=== PATIENT | male | born 1960 | race Hispanic/Latino ===

== ENCOUNTER 2017-09-25 12:22 | Emergency (ER) | payer MEDICARE ==
[2017-09-25 13:39] LABS: Bilirubin,Urine NEG (Negative); Blood,Urine LG (Negative); Color,Urine Red (Yellow); Mucus,Urine FEW /HPF; Urobilinogen,Urine < 2.0 mg/dL (<2.0)
[2017-09-25 13:41] LABS: RBC,Urine > 182.0 /HPF (0.0-6.0)
--- NOTE | 2017-09-25 15:35 | Emergency Department Report ---
ED Male HPI - General Chief complaint: Urogenital-Male Stated complaint: BLOOD IN URINE Time Seen by Provider: 09/25/17 15:13 Source: patient Mode of arrival: Ambulatory Limitations: No Limitations - History of Present Illness Initial comments: Patient is a 57-year-old male who is coming in because of blood in his urine. Patient states he has some very mild dysuria but has been seeing some blood-tinged urine with some white particles since Sunday. Patient's denies any fevers chills nausea vomiting or diarrhea. Patient denies any abdominal pain chest pain at this time. - Related Data Previous Rx's Medication Instructions Recorded Last Taken Type Ciprofloxacin HCl [Cipro] 500 mg PO BID #20 tablet 09/25/17 Unknown Rx Tamsulosin HCl [Flomax] 0.4 mg PO QHS #10 cap.er.24h 09/25/17 Unknown Rx Allergies Allergy/AdvReac Type Severity Reaction Status Date / Time No Known Allergies Allergy Unverified 09/25/17 12:33 ED Review of Systems ROS: Stated complaint: BLOOD IN URINE Other details as noted in HPI Comment: All other systems reviewed and negative ED Past Medical Hx - Past Medical History Hx Diabetes: Yes - Social History Smoking Status: Never Smoker Substance Use Type: None - Medications Home Medications: Home Medications Medication Instructions Recorded Confirmed Last Taken Type Ciprofloxacin HCl [Cipro] 500 mg PO BID #20 tablet 09/25/17 Unknown Rx Tamsulosin HCl [Flomax] 0.4 mg PO QHS #10 cap.er.24h 09/25/17 Unknown Rx ED Physical Exam - General Limitations: No Limitations General appearance: alert, in no apparent distress - Head Head exam: Present: atraumatic, normocephalic - Eye Eye exam: Present: normal appearance - ENT ENT exam: Present: mucous membranes moist - Neck Neck exam: Present: normal inspection - Respiratory Respiratory exam: Present: normal lung sounds bilaterally. Absent: respiratory distress, wheezes, rales, rhonchi - Cardiovascular Cardiovascular Exam: Present: regular rate, normal rhythm. Absent: systolic murmur, diastolic murmur, rubs, gallop - GI/Abdominal GI/Abdominal exam: Present: soft, normal bowel sounds. Absent: distended, tenderness, guarding - Rectal Rectal exam: Present: deferred - Extremities Exam Extremities exam: Present: normal inspection - Back Exam Back exam: Present: normal inspection - Neurological Exam Neurological exam: Present: alert, oriented X3 - Psychiatric Psychiatric exam: Present: normal affect, normal mood - Skin Skin exam: Present: warm, dry, intact, normal color. Absent: rash ED Course Vital Signs 09/25/17 12:33 Temperature 98.2 F Pulse Rate 94 H Respiratory 20 Rate Blood Pressure 181/90 O2 Sat by Pulse 97 Oximetry ED Medical Decision Making - Lab Data Lab Results 09/25/17 Range/Units 12:49 Urine Color Red (Yellow) Urine Turbidity Clear (Clear) Urine pH 5.0 (5.0-7.0) Ur Specific [place] 1.017 (1.003-1.030) Urine Protein 30 mg/dl (Negative) mg/dL Urine Glucose (UA) Neg (Negative) mg/dL Urine Ketones Neg (Negative) mg/dL Urine Blood Lg (Negative) Urine Nitrite Neg (Negative) Urine Bilirubin Neg (Negative) Urine Urobilinogen < 2.0 (<2.0) mg/dL Ur Leukocyte Esterase Neg (Negative) Urine WBC (Auto) 60.0 H (0.0-6.0) /HPF Urine RBC (Auto) > 182.0 (0.0-6.0) /HPF U Epithel Cells (Auto) 1.0 (0-13.0) /HPF Urine Mucus Few /HPF Urine Yeast (Budding) 3+ /HPF - Medical Decision Making The patient appears very stable for at home treatment. Patient be started on Cipro and will be discharged. Critical care attestation.: If time is entered above; I have spent that time in minutes in the direct care of this critically ill patient, excluding procedure time. ED Disposition Clinical Impression: UTI (urinary tract infection) Qualifiers: Urinary tract infection type: acute cystitis Hematuria presence: with hematuria Qualified Code(s): N30.01 - Acute cystitis with hematuria Disposition: TO HOME OR SELFCARE Is pt being admited?: No Does the pt Need Aspirin: No Condition: Stable Instructions: Urinary Tract Infection in Men (ED) Prescriptions: Tamsulosin HCl [Flomax] 0.4 mg PO QHS #10 cap.er.24h Ciprofloxacin HCl [Cipro] 500 mg PO BID #20 tablet Referrals: HERI BOWEN MD [Primary Care Provider] - 3-5 Days
[2017-09-25 15:48] VITALS: BP 174/84
== END 2017-09-25 15:47 | disposition home or self-care (01) ==
LOC: ED 12:22
DX: N39.0 Urinary tract infection, site not specified (principal); E11.9 Type 2 diabetes mellitus without complications
CPT/HCPCS: 81001; 99283

== ENCOUNTER 2017-10-24 12:01 | Outpatient (CLI) | payer MEDICARE ==
[2017-10-24 13:50] LABS: Blood Urea Nitrogen 24 mg/dL (9-20)
--- NOTE | 2017-10-24 20:07 | Cat Scan Report ---
FINAL REPORT EXAM: CT A/P w Contrast CLINICAL INDICATIONS: Hematuria FINDINGS: Unenhanced CT was performed from the level of the right mid-kidney to the pelvis. Subsequently, contrast-enhanced CT was performed from the midportion of the right kidney to the pelvis following the administration of intravenous iodinated contrast. Delayed phase images through the lower chest were acquired. Excretory-phase images through the entire abdomen and pelvis were acquired. Unfortunately no precontrast or early-phase imaging was performed of the upper abdomen. There is cardiomegaly and coronary artery calcification. The lung bases appear clear. Abdomen: There is a mass of the right upper renal pole and lateral aspect of the right kidney, approximately 13.4 x 12.5 cm consistent with renal cell carcinoma. There are multiple collateral vessels around the right kidney which are likely feeding the tumor. The right kidney continues to function and excretion from the right kidney is present. There is possible tumor thrombus within the proximal portion of the right renal vein, questioned on delayed-phase expiratory images 23-24. No thrombus is seen in the inferior vena cava. No pathologically enlarged retroperitoneal lymph node is seen. The left kidney appears unremarkable on the delayed-phase images. Other images of the left kidney were not acquired. There are gallstones. No evidence of cholecystitis is seen. No suspect focal hepatic lesion is seen. The spleen is normal in size. No adrenal mass is seen. No focal pancreatic lesion is seen. The abdominal aorta is normal in size. Pelvis: There is a normal appendix. There is no evidence of diverticulitis. The prostate and urinary bladder are within normal limits. IMPRESSION: ABDOMEN: MASS WITHIN RIGHT KIDNEY, CONSISTENT WITH RENAL CELL CARCINOMA. THERE IS POSSIBLE TUMOR THROMBUS WITHIN THE PROXIMAL ASPECT OF THE RIGHT RENAL VEIN. NO THROMBUS IS SEEN IN THE INFERIOR VENA CAVA PELVIS: NORMAL APPENDIX
== END 2017-10-24 12:02 | disposition home or self-care (01) ==
LOC: CT 12:01
PROVIDERS: ATTEND Internal Medicine
DX: N28.89 Other specified disorders of kidney and ureter (principal)
CPT/HCPCS: 36415; 74177; 82565; 84520; Q9967

== ENCOUNTER 2018-07-08 10:50 | Outpatient (CLI) | payer MEDICARE, SELFPAY | END 2018-07-08 10:51 | disposition home or self-care (01) | LOC: LAB 10:50 | PROVIDERS: ATTEND Internal Medicine | DX: E11.9 Type 2 diabetes mellitus without complications (principal); E66.9 Obesity, unspecified; I10 Essential (primary) hypertension | CPT/HCPCS: 36415; 83036 ==

== ENCOUNTER 2018-09-11 09:15 | Outpatient (CLI) | payer MEDICARE ==
--- NOTE | 2018-09-11 12:17 | Cat Scan Report ---
CT scan of chest and abdomen without IV contrast: History: Malignant neoplasm of unspecified kidney. Findings: No endobronchial or mediastinal mass. No mediastinal hilar or axillary adenopathy. No pleural pericardial effusion. There is identified in the esophagus which may be a nonspecific or related to distal esophageal obstruction. Normal lung parenchyma. No discrete nodularity or consolidation Multiple calculi in the gallbladder. Normal liver spleen pancreas. Normal right and left adrenal gland. Patient status post right nephrectomy. No mass in the region of the renal fossae. No evidence of adenopathy. Normal left kidney. Normal bladder. No free intraperitoneal fluid or air. Stool in colon. No bowel distention. Impression: Air in the esophagus as detailed above. No acute lung changes are mediastinal adenopathy. Multiple calculi in the gallbladder. Patient status post right nephrectomy. No recurrence. No evidence of adenopathy.
--- NOTE | 2018-09-11 13:32 | Nuclear Medicine Report ---
NUCLEAR MEDICINE WHOLE-BODY BONE SCAN: 09/11/18 09:27:00 CLINICAL: Malignant neoplasm kidney COMPARISON: 02/01/18 TECHNIQUE: 27.5 millicuries technetium 99m MDP was injected intravenously and whole body scans were obtained at 3 hours. FINDINGS: Relatively symmetric benign uptake in the shoulders, clavicles, sternum and thoracic spine which is unchanged compared to the previous exam. No suspicious uptake. Normal distribution of uptake in the soft tissues. Absent right renal uptake. IMPRESSION: Negative study with no suspicion of metastasis.
== END 2018-09-11 09:16 | disposition home or self-care (01) ==
LOC: NM 09:15
PROVIDERS: ATTEND Internal Medicine Hematology & Oncology
DX: K80.20 Calculus of gallbladder without cholecystitis without obstruction (principal); R59.0 Localized enlarged lymph nodes; C64.9 Malignant neoplasm of unspecified kidney, except renal pelvis; E11.9 Type 2 diabetes mellitus without complications; I10 Essential (primary) hypertension; E66.9 Obesity, unspecified
CPT/HCPCS: 71250; 74176; 78306; A9503

== ENCOUNTER 2018-11-05 10:43 | Outpatient (CLI) | payer MEDICARE ==
[2018-11-08 15:02] LABS: Vitamin D, 25-OH, D2 <4 ng/mL
== END 2018-11-05 10:44 | disposition home or self-care (01) ==
LOC: LAB 10:43
PROVIDERS: ATTEND Internal Medicine
DX: E11.9 Type 2 diabetes mellitus without complications (principal); E66.9 Obesity, unspecified; I10 Essential (primary) hypertension; Z13.21 Encounter for screening for nutritional disorder
CPT/HCPCS: 36415; 82306; 82607; 83036

== ENCOUNTER 2019-12-25 13:29 | Outpatient (CLI) | payer MEDICARE ==
--- NOTE | 2019-12-25 15:10 | Cat Scan Report ---
CT CHEST WITHOUT CONTRAST INDICATION / CLINICAL INFORMATION: RENAL CELL CANCER. TECHNIQUE: Axial CT images were obtained through the chest without contrast. Sagittal and coronal reformatted im ages. All CT scans at this location are performed using CT dose reduction for ALARA by means of autom ated exposure control. COMPARISON: 09/11/2018 FINDINGS: HEART: Mild cardiomegaly. Moderate coronary artery and mitral valve calcifications are identified. No pericardial effusion. THORACIC AORTA: No significant abnormality. MEDIASTINUM and DANIA: No significant abnormality. LUNGS: No acute air space or interstitial disease. No suspicious pulmonary nodule or mass. PLEURA: No significant pleural effusion. No pneumothorax. SKELETAL SYSTEM: No significant abnormality. UPPER ABDOMEN: Numerous tiny gallstones in the gallbladder. ADDITIONAL FINDINGS: None. IMPRESSION: Mild cardiomegaly. No evidence for metastatic disease to the chest. Signer Name: Kurt Juarez Jr, MD Signed: 12/25/2019 3:05 PM Workstation Name: [id number]
--- NOTE | 2019-12-25 15:38 | Cat Scan Report ---
CT ABDOMEN AND PELVIS WITHOUT IV CONTRAST INDICATION: RENAL CELL CANCER. COMPARISON: 09/11/2018 TECHNIQUE: All CT scans at this facility use dose modulation, automated exposure control, iterative reconstructi on or weight based dosing, when appropriate, to reduce radiation dose to as low as reasonably achieva ble. FINDINGS: Skeletal System: No acute abnormality. ABDOMEN: Liver: Steatosis. Gallbladder: Multiple small gallstones, unchanged. Bile Ducts: No significant abnormality. Pancreas: No significant abnormality. Spleen: No significant abnormality. Adrenals: No significant abnormality. Right Kidney: Right nephrectomy bed is unremarkable. Left Kidney: No significant abnormality. Upper GI tract: No significant abnormality. Lymph Nodes: No significant adenopathy. Aorta: No significant abnormality. Additional Findings: No significant abnormality. PELVIS: Colon: No acute abnormality. Urinary Bladder and Distal Ureters: No significant abnormality. Appendix: No significant abnormality. Lymph Nodes: No significant adenopathy. Additional Findings: None. IMPRESSION: 1. No acute findings. No CT evidence of metastatic disease. 2. Incidental findings, as above. Signer Name: Samm Danielson MD Signed: 12/25/2019 3:33 PM Workstation Name: [id number]
== END 2019-12-25 13:30 | disposition home or self-care (01) ==
LOC: CT 13:29
PROVIDERS: ATTEND Internal Medicine Hematology & Oncology
DX: C64.9 Malignant neoplasm of unspecified kidney, except renal pelvis (principal); K76.0 Fatty (change of) liver, not elsewhere classified; K85.10 Biliary acute pancreatitis without necrosis or infection
CPT/HCPCS: 71250; 74176

== ENCOUNTER 2020-08-16 12:13 | Outpatient (CLI) | payer MEDICARE | END 2020-08-16 12:14 | disposition home or self-care (01) | LOC: LAB 12:13 | PROVIDERS: ATTEND Internal Medicine | DX: E11.9 Type 2 diabetes mellitus without complications (principal); E78.5 Hyperlipidemia, unspecified | CPT/HCPCS: 36415; 80061; 83036 ==

== ENCOUNTER 2020-12-27 09:44 | Outpatient (CLI) | payer MEDICARE ==
--- NOTE | 2020-12-27 11:02 | Cat Scan Report ---
CT CHEST, ABDOMEN, AND PELVIS WITHOUT CONTRAST INDICATION : history OF kidney CANCER , LEFT KIDNEY REMOVED X 3 YEARS AGO. C64.9,C64.1 . TECHNIQUE: Helical imaging with sagittal and coronal reformated images. [facility] CT dose reduction for ALARA by means of automated exposure control. COMPARISON: 12/25/2019 FINDINGS: CHEST: Heart size remains within normal limits. Moderate to severe coronary artery and mitral valve calcifications are noted. No pericardial abnormality. The remaining mediastinal structures are unrema rkable. No pathologic adenopathy is appreciated. 5 mm subpleural nodule in the posterior left lower l obe is unchanged. The remainder of the lungs are clear. No new suspicious nodule, infiltrate, pleural fluid or pneumothorax. Stable mild thoracic spondylosis. No suspicious bony lesion. ABDOMEN/PELVIS: Stable right nephrectomy changes are demonstrated. No recurrent mass in the right re nal fossa. There are a few scattered tiny calyceal stones in the inferior left kidney which are uncha nged. No hydronephrosis or left renal mass is appreciated. There are scattered subcentimeter periaort ic lymph nodes which appear unchanged in size and number. No pathologic adenopathy. Numerous tiny calcified gallstones are noted in the gallbladder. No biliary dilatation or inflammatio n. The liver, pancreas, spleen and adrenal glands remain within normal limits. There is moderate to large fecal matter throughout the colon. No evidence for bowel obstruction or fo michael inflammation. No obvious mass. Normal appendix. The bladder and distal ureters are unremarkable. Normal prostate gland. No suspicious bony lesion or fracture is detected. IMPRESSION: Stable findings since 12/25/2019 exam. No evidence for recurrent or metastatic disease in the chest, a bdomen or pelvis. Minimal left nephrolithiasis, nonobstructing. Cholelithiasis. Constipation. Signer Name: Kurt Juarez Jr, MD Signed: 12/27/2020 10:57 AM Workstation Name: [id number]
== END 2020-12-27 09:45 | disposition home or self-care (01) ==
LOC: CT 09:44
PROVIDERS: ATTEND Internal Medicine Hematology & Oncology
DX: C64.9 Malignant neoplasm of unspecified kidney, except renal pelvis (principal); C64.1 Malignant neoplasm of right kidney, except renal pelvis; I25.10 Atherosclerotic heart disease of native coronary artery without angina pectoris; I34.0 Nonrheumatic mitral (valve) insufficiency; K80.20 Calculus of gallbladder without cholecystitis without obstruction
CPT/HCPCS: 71250; 74176

== ENCOUNTER 2020-12-30 10:45 | Outpatient (CLI) | payer MEDICARE ==
[2020-12-30 11:21] LABS: Chol/HDL Ratio 2.72 %
== END 2020-12-30 10:46 | disposition home or self-care (01) ==
LOC: LAB 10:45
PROVIDERS: ATTEND Internal Medicine
DX: E11.319 Type 2 diabetes mellitus with unspecified diabetic retinopathy without macular edema (principal); E78.5 Hyperlipidemia, unspecified
CPT/HCPCS: 36415; 80061; 83036

== ENCOUNTER 2021-07-08 09:16 | Outpatient (CLI) | payer MEDICARE ==
[2021-07-08] MEDS ORDERED: LIDOCAINE (4%) 40 MG/ML TOPICAL SOLN 50 ML BOTTLE TP ONE (10:43)
[2021-07-08] MEDS ORDERED: SODIUM HYPOCHLORITE, DAKIN'S FULL STRENGTH (0.5%) 473 ML TOPICAL SOLN TP ONE (12:34)
== END 2021-07-08 09:17 | disposition home or self-care (01) ==
LOC: MERGE 09:16 → WOUND 09:16
PROVIDERS: ATTEND Surgery
DX: T87.89 Other complications of amputation stump (principal); T81.89XA Other complications of procedures, not elsewhere classified, initial encounter; E11.621 Type 2 diabetes mellitus with foot ulcer; L97.522 Non-pressure chronic ulcer of other part of left foot with fat layer exposed; E11.69 Type 2 diabetes mellitus with other specified complication; M86.272 Subacute osteomyelitis, left ankle and foot; I10 Essential (primary) hypertension; Z90.5 Acquired absence of kidney; Z89.422 Acquired absence of other left toe(s); Z89.421 Acquired absence of other right toe(s); Z86.73 Personal history of transient ischemic attack (TIA), and cerebral infarction without residual deficits; Z79.899 Other long term (current) drug therapy; Y92.238 Other place in hospital as the place of occurrence of the external cause; Y83.8 Other surgical procedures as the cause of abnormal reaction of the patient, or of later complication, without mention of misadventure at the time of the procedure; Y83.5 Amputation of limb(s) as the cause of abnormal reaction of the patient, or of later complication, without mention of misadventure at the time of the procedure
CPT/HCPCS: 11042; 11043; 11046; G0463; 99204; 99214

== ENCOUNTER 2021-07-08 14:03 | Outpatient (CLI) | payer MEDICARE ==
--- NOTE | 2021-07-08 15:17 | XRay Report ---
Left foot 3 views INDICATION: None given FINDINGS: Postoperative change in the great toe. There is some mild bony irregularities in the distal great toe metatarsal. A cellulitis and infection could have this appearance. Diffuse soft tissue ulc eration and irregularity. There is removal of the third distal phalanx with some irregularity in the second phalanx as well. IMPRESSION: Soft tissue ulceration and irregularity in the distal aspect of the great toe metatarsal. Findings co ncerning for osteomyelitis. Irregularity second third toe noted as well. MRI could be performed for f urther evaluation. Signer Name: Chato Watts MD Signed: 07/08/2021 3:05 PM Workstation Name: [id number]
== END 2021-07-08 14:04 | disposition home or self-care (01) ==
LOC: XRAY 14:03
PROVIDERS: ATTEND Surgery
DX: M86.272 Subacute osteomyelitis, left ankle and foot (principal); M86.8X7 Other osteomyelitis, ankle and foot; Z86.31 Personal history of diabetic foot ulcer

== ENCOUNTER 2021-07-13 10:38 | Outpatient (CLI) | payer MEDICARE ==
--- NOTE | 2021-07-13 14:25 | Vascular Lab Report ---
DUPLEX DOPPLER LOWER EXTREMITY ARTERIAL, BILATERAL INDICATION / CLINICAL INFORMATION: Z86.31DIABETIC FOOT ULCER M86.272 SUBACUTE OSTEOMYELITIS. TECHNIQUE: Arterial duplex examination of both lower extremities performed using B-mode, color flow a nd spectral Doppler assessment. FINDINGS: RIGHT: Mild to moderate atherosclerotic plaque. Common Femoral Artery: PSV 125 cm/sec. Triphasic waveform. Proximal SFA: PSV 108 cm/sec. Triphasic waveform. Mid SFA: PSV 112 cm/sec. Triphasic waveform. Distal SFA: PSV 121 cm/sec. Triphasic waveform. Popliteal Artery: PSV 64 cm/sec. Triphasic waveform. Posterior Tibial Artery: PSV 131 cm/sec. Monophasic waveform. Dorsalis Pedis Artery: PSV 36 cm/sec. Monophasic waveform. LEFT: Moderate atherosclerotic plaque. Common Femoral Artery: PSV 118 cm/sec. Triphasic waveform. Proximal SFA: PSV 119 cm/sec. Triphasic waveform. Mid SFA: PSV 125 cm/sec. Triphasic waveform. Distal SFA: PSV 144 cm/sec. Monophasic waveform. Popliteal Artery: PSV 85 cm/sec. Monophasic waveform. Posterior Tibial Artery: PSV 25 cm/sec. Monophasic waveform. Dorsalis Pedis Artery: PSV 62 cm/sec. Monophasic waveform. ADDITIONAL FINDINGS: Elevated velocity within the left anterior tibial artery measuring 224 cm/s sugg esting stenosis. RIGHT CINDY: Not calculated. LEFT CINDY: Not calculated. IMPRESSION: 1. Multifocal atherosclerotic disease is present throughout both lower extremities with transition fr om triphasic to monophasic waveforms bilaterally. These findings likely indicate hemodynamically sign ificant disease in the crural arteries on the right and beginning at the level of the distal SFA on t he left. Ankle-Brachial Index (CINDY): - Calcified arteries > 1.4 - Normal = 0.9-1.4 - Mild PAD = 0.7-0.89 - Moderate PAD = 0.51-0.69 - Severe PAD < 0.5 Doppler Waveform: - Triphasic is normal. - Biphasic is abnormal if clear transition from triphasic signal along vascular tree. - Monophasic is abnormal. Scribed by: Chaya Hernandez RDMS, [place], AMOL Scribed: 07/13/2021 12:45 PM I have reviewed the images, agree with this report, and edited this report as needed. Signer Name: Chato Watts MD Signed: 07/13/2021 2:20 PM Workstation Name: [id number]
== END 2021-07-13 10:39 | disposition home or self-care (01) ==
LOC: VAS 10:38
PROVIDERS: ATTEND Surgery
DX: I70.203 Unspecified atherosclerosis of native arteries of extremities, bilateral legs (principal); M86.272 Subacute osteomyelitis, left ankle and foot; Z86.31 Personal history of diabetic foot ulcer
CPT/HCPCS: 93925